=== PATIENT | male | born 1995 | race African-American/Black ===

== ENCOUNTER 2022-07-09 10:49 | Emergency (ER) | payer MEDICAID ==
[~2022-07-09] VITALS: Ht 165.1 cm; Wt 90.9 kg
[~2022-07-09 10:49] MED LIST: NOCURR
[2022-07-09] MEDS ORDERED: HYDROCODONE/ACETAMINOPHEN 5-325 MG TABLET PO ONE (12:15)
[2022-07-09] MEDS ORDERED: KETOROLAC TROMETHAMINE 60 MG/2 ML VIAL IM ONE (12:15)
[2022-07-09] MEDS ORDERED: BACLOFEN 10 MG TABLET PO ONE (12:15)
[2022-07-09 14:16] VITALS: BP 141/80
[2022-07-09] MEDS ORDERED: HYDR-4723 PO (14:28)
[2022-07-09] MEDS ORDERED: BACL10TA PO (14:28)
[2022-07-09] MEDS ORDERED: IBUP-1554 PO (14:28)
[2022-07-10] MEDS ORDERED: ACET-2080 PO (12:31)
[2022-07-10] MEDS ORDERED: IBUP-1554 PO (12:31)
[2022-07-10] MEDS ORDERED: BACL10TA PO (12:31)
[2022-07-10] MEDS ORDERED: PERCT PO (12:39)
== END 2022-07-09 14:49 | disposition home or self-care (01) ==
LOC: EMS 10:51
DX: S13.4XXA Sprain of ligaments of cervical spine, initial encounter (principal); S29.012A Strain of muscle and tendon of back wall of thorax, initial encounter; S20.219A Contusion of unspecified front wall of thorax, initial encounter; V89.2XXA Person injured in unspecified motor-vehicle accident, traffic, initial encounter; Y93.89 Activity, other specified; Y92.89 Other specified places as the place of occurrence of the external cause; Y99.8 Other external cause status
CPT/HCPCS: 99284; 72040; 72070; 72100; 73130; 96372; J1885

== ENCOUNTER 2024-06-20 20:00 | Emergency (ER) | payer MEDICAID, OTHER ==
[~2024-06-20] VITALS: Ht 165.1 cm; Wt 88.6 kg
[~2024-06-20 20:00] MED LIST changes: +BACL10TA PO; +IBUP-1554 PO; +PERCT PO
[2024-06-20 20:37] VITALS: BP 138/87; PULSE 89; RESP 18; TEMP 98.8; O2SAT 100
[2024-06-20 21:02] LABS: COVID AG,FIA SOURCE NASAL SWAB
[2024-06-20 21:28] LABS: SARS-COV2 (COVID) ANTIGEN,FIA Negative (Negative)
[2024-06-20 21:31] LABS: INFLUENZA TYPE A NEGATIVE FOR TYPE A (NEGATIVE); INFLUENZA TYPE B NEGATIVE FOR TYPE B (NEGATIVE)
[2024-06-20] MEDS ORDERED: ONDA-104 PO (22:34)
[2024-06-20] MEDS ORDERED: BENZ-227 PO (22:34)
[2024-06-20] MEDS ORDERED: ACET-3385 PO (22:34)
[2024-06-20] MEDS: ACETAMINOPHEN 500 MG TABLET PO ONE (22:42)
[2024-06-20] MEDS: ONDANSETRON 4 MG TABLET PO ONE (22:42)
[2024-06-20] MEDS: BENZONATATE 100 MG CAPSULE PO ONE (22:42)
== END 2024-06-20 22:48 | disposition home or self-care (01) ==
LOC: EMS 20:00
DX: B34.9 Viral infection, unspecified (principal); R11.2 Nausea with vomiting, unspecified; Z20.822 Contact with and (suspected) exposure to COVID-19; Z79.899 Other long term (current) drug therapy
CPT/HCPCS: 99284; 87426; 87804; Q0162